=== PATIENT | male | born 1970 | race Caucasian/White ===

== ENCOUNTER 2016-09-03 08:21 | Emergency (ER) | payer MEDICARE, OTHER ==
[2016-09-03] MEDS ORDERED: SODIUM CHLORIDE 0.9% 1,000 ML IV ONE (08:40)
[2016-09-03] MEDS ORDERED: KETOROLAC 30 MG/ML 1 ML VIAL IVP STA (08:40)
--- NOTE | 2016-09-03 08:44 | ED ---
General Adult HPI <Jose De Jesus Mason - Last Filed: 09/03/16 10:20> - General Source: patient, RN notes reviewed Mode of arrival: ambulatory Limitations: no limitations <Beulah Cabrales - Last Filed: 09/03/16 10:41> - General Chief complaint: Extremity Injury, Lower Stated complaint: leg infection Time Seen by Provider: 09/03/16 08:34 - History of Present Illness Initial comments: Patient is a 46-year-old male presents to the emergency room for evaluation of right leg infection. Patient states about a week and half ago he slipped on a ladder and received an abrasion over his right anterior more. Patient states about 4 days ago the area was not healing and began swelling so he went to urgent care clinic. Patient states he was placed on Keflex. Patient states over the past 2 days the redness has spread over his leg. Patient states he has been having increasing pain and noticed purulent drainage from the area 2 days ago. Patient states he's having 7 out of 10 pain. Patient denies fevers or chills. Patient denies nausea or vomiting. Patient denies any numbness or tingling in his toes. Patient denies history of diabetes. Patient states he's been taking Keflex with no relief of symptoms. Patient does state he has a history of abscesses. Patient denies history of MRSA. (Beulah Cabrales) - Related Data Home Medications Medication Instructions Recorded Confirmed Benztropine Mesylate [Cogentin] 1 mg PO BID 09/03/16 09/03/16 Citalopram Hydrobromide [CeleXA] 20 mg PO DAILY 09/03/16 09/03/16 Haloperidol [Haldol] 5 mg PO BID 09/03/16 09/03/16 Lurasidone HCl [Latuda] 120 mg PO DAILY 09/03/16 09/03/16 Methylphenidate HCl [Ritalin] 20 mg PO TID 09/03/16 09/03/16 Prazosin [Minipress] 1 mg PO HS 09/03/16 09/03/16 QUEtiapine [SEROquel] 400 mg PO HS 09/03/16 09/03/16 Tamsulosin HCl [Flomax] 0.4 mg PO HS 09/03/16 09/03/16 buPROPion HCL [Wellbutrin XL] 300 mg PO DAILY 09/03/16 09/03/16 clonazePAM [KlonoPIN] 0.5 mg PO TID PRN 09/03/16 09/03/16 levETIRAcetam [Keppra] 750 mg PO HS 09/03/16 09/03/16 traZODone HCL 150 mg PO HS 09/03/16 09/03/16 Previous Rx's Medication Instructions Recorded Clindamycin [Cleocin] 450 mg PO Q6H 10 Days 09/03/16 Allergies Allergy/AdvReac Type Severity Reaction Status Date / Time oxycodone [From Percocet] Allergy Wheezing Verified 09/03/16 10:32 Review of Systems ROS Other: All systems not noted in ROS Statement are negative. <Jose De Jesus Mason - Last Filed: 09/03/16 10:20> ROS Other: All systems not noted in ROS Statement are negative. <Beulah Cabrales - Last Filed: 09/03/16 10:41> ROS Statement: Those systems with pertinent positive or pertinent negative responses have been documented in the HPI. Past Medical History Past Medical History: No Reported History History of Any Multi-Drug Resistant Organisms: None Reported Past Surgical History: Adenoidectomy, Appendectomy, Bariatric Surgery, Ear Surgery, Tonsillectomy Additional Past Surgical History / Comment(s): shayna en y, ganglion cyst removal x3 Past Psychological History: No Psychological Hx Reported Smoking Status: Never smoker Past Alcohol Use History: None Reported Past Drug Use History: None Reported <Beulah Cabrales - Last Filed: 09/03/16 10:41> General Exam <Jose De Jesus Mason - Last Filed: 09/03/16 10:20> Limitations: no limitations General appearance: alert, in no apparent distress Head exam: Present: atraumatic, normocephalic, normal inspection Eye exam: Present: normal appearance ENT exam: Present: normal exam Neck exam: Present: normal inspection Respiratory exam: Present: normal lung sounds bilaterally. Absent: respiratory distress Cardiovascular Exam: Present: regular rate, normal rhythm, normal heart sounds Right Lower Leg exam: Present: full ROM, tenderness. Absent: normal inspection ( Small ulcerating lesion with purulent drainage with surrounding edema and erythema. Underlying hematoma.) Ankle exam: Present: swelling Foot/Toe exam: Present: swelling Neurovascular tendon exam: Present: no vascular compromise. Absent: pulse deficit (2+ dorsal pedal and posterior tibial pulses), abnormal cap refill ( Capillary refill less than 2 seconds) Back exam: Present: normal inspection Neurological exam: Present: alert, oriented X3, CN II-XII intact Psychiatric exam: Present: normal affect, normal mood Skin exam: Present: warm, dry. Absent: rash <Beulah Cabrales - Last Filed: 09/03/16 10:41> - General Exam Comments Initial Comments: Sitting in exam room, no acute distress. (Beulah Cabrales) Course <Jose De Jesus Mason - Last Filed: 09/03/16 10:20> <Beulah Cabrales - Last Filed: 09/03/16 10:41> Vital Signs 09/03/16 09/03/16 08:24 09:36 Temperature 98.1 F 98.4 F Pulse Rate 81 66 Respiratory 18 15 Rate Blood Pressure 122/80 121/77 O2 Sat by Pulse 98 100 Oximetry - Reevaluation(s) Reevaluation #1: 09/03/16 10:20 I did personally do a [id number] evaluation the patient did examine his leg. He does have edema with localized evidence of cellulitis and hematoma. There is some drainage that is dried no rollover the original wound. No calf tenderness no lymphangitis no proximal lymph nodes tenderness. X-ray show no evidence of foreign body. I did a long discussion with the patient regarding the options for treatment. Patient will require a change in antibiotics he does state that he cannot stay in the hospital due to the recent custody of a 7- year-old child that he has elected to try outpatient therapy. We did discuss this this is a reasonable option at this time patient was cautioned or if he has worsening of symptoms or any other symptoms which we enumerated he should come back for further care. I did stress the need for elevation of his extremity warm compresses and compliance with the medication. (Jose De Jesus Mason) Medical Decision Making - Lab Data Result diagrams: 09/03/16 08:40 09/03/16 08:40 <Jose De Jesus Mason - Last Filed: 09/03/16 10:20> - Lab Data Result diagrams: 09/03/16 08:40 09/03/16 08:40 <Beulah Cabrales - Last Filed: 09/03/16 10:41> - Lab Data Lab Results 09/03/16 09/03/16 09/03/16 Range/Units 08:40 08:40 08:40 WBC 6.5 (3.8-10.6) k/uL RBC 4.34 (4.30-5.90) m/uL Hgb 13.7 (13.0-17.5) gm/dL Hct 38.8 L (39.0-53.0) % MCV 89.4 (80.0-100.0) fL MCH 31.7 (25.0-35.0) pg MCHC 35.4 (31.0-37.0) g/dL RDW 13.1 (11.5-15.5) % Plt Count 364 (150-450) k/uL Neutrophils % 67 % Lymphocytes % 22 % Monocytes % 6 % Eosinophils % 2 % Basophils % 1 % Neutrophils # 4.4 (1.3-7.7) k/uL Lymphocytes # 1.4 (1.0-4.8) k/uL Monocytes # 0.4 (0-1.0) k/uL Eosinophils # 0.1 (0-0.7) k/uL Basophils # 0.1 (0-0.2) k/uL Sodium 140 (137-145) mmol/L Potassium 4.4 (3.5-5.1) mmol/L Chloride 104 (98-107) mmol/L Carbon Dioxide 27 (22-30) mmol/L Anion Gap 9 mmol/L BUN 9 (9-20) mg/dL Creatinine 0.72 (0.66-1.25) mg/dL Est GFR (MDRD) Af Amer >60 (>60 ml/min/1.73 sqM) Est GFR (MDRD) Non-Af >60 (>60 ml/min/1.73 sqM) Glucose 63 L (74-99) mg/dL Plasma Lactic Acid Jordan 1.1 (0.7-2.0) mmol/L Calcium 9.3 (8.4-10.2) mg/dL Total Bilirubin 0.3 (0.2-1.3) mg/dL AST 25 (17-59) U/L ALT 29 (21-72) U/L Alkaline Phosphatase 86 (38-126) U/L Total Protein 6.2 L (6.3-8.2) g/dL Albumin 4.0 (3.5-5.0) g/dL Disposition <Jose De Jesus Mason - Last Filed: 09/03/16 10:20> Time of Disposition: 09:50 <Beulah Cabrales - Last Filed: 09/03/16 10:41> Clinical Impression: Cellulitis of right leg Disposition: HOME SELF-CARE Condition: Stable Instructions: Cellulitis (ED) Additional Instructions: Take antibiotics as directed. Apply warm compresses. Elevate. Please follow up with primary care provider in 1-2 days for reevaluation. If any new symptom arises or symptoms worsen, return to ER as soon as possible. Prescriptions: Clindamycin [Cleocin] 450 mg PO Q6H 10 Days Referrals: None,Stated [Primary Care Provider] - 1-2 days
[2016-09-03 08:58] LABS: Basophils # (A) 0.1 k/uL (0-0.2); Basophils % (A) 1 %; CHCM 34.8; Eosinophils # (A) 0.1 k/uL (0-0.7); Eosinophils % (A) 2 %; HCT 38.8 % (39.0-53.0); HDW 2.66; HGB 13.7 gm/dL (13.0-17.5); Luc # (Auto) 0.12; Luc % (Auto) 2; Lymphocytes # (A) 1.4 k/uL (1.0-4.8); Lymphocytes % (A) 22 %; MCH 31.7 pg (25.0-35.0); MCHC 35.4 g/dL (31.0-37.0); MCV 89.4 fL (80.0-100.0); Mean Platelet Volume 6.8; Monocytes # (A) 0.4 k/uL (0-1.0); Monocytes % (A) 6 %; Neutrophils # (A) 4.4 k/uL (1.3-7.7); Neutrophils % (A) 67 %; RBC 4.34 m/uL (4.30-5.90); RDW 13.1 % (11.5-15.5); WBC 6.5 k/uL (3.8-10.6); WBC (Perox) 6.23
[2016-09-03 09:05] LABS: ALT 29 U/L (21-72); AST 25 U/L (17-59); Alkaline Phosphatase 86 U/L (38-126); Anion Gap 9 mmol/L; Blood Urea Nitrogen 9 mg/dL (9-20); Calcium 9.3 mg/dL (8.4-10.2); Carbon Dioxide 27 mmol/L (22-30); Chloride 104 mmol/L (98-107); Glucose 63 mg/dL (74-99); Non-African American GFR(MDRD) >60 (>60 ml/min/1.73 sqM); Potassium 4.4 mmol/L (3.5-5.1); Sodium 140 mmol/L (137-145); Total Bilirubin 0.3 mg/dL (0.2-1.3); Total Protein 6.2 g/dL (6.3-8.2)
--- NOTE | 2016-09-03 09:11 | XR ---
EXAMINATION TYPE: XR tibia fibula RT DATE OF EXAM: 09/03/2016 CLINICAL HISTORY: Fall injury 2 weeks ago with persistent pain swelling and redness and open wound. TECHNIQUE: Two views of the right leg are obtained. COMPARISON: None. FINDINGS: There is no acute fracture or dislocation seen in the right tibia or fibula. Some medial j oint space loss in right knee is present. Visualized ankle joint is within normal limits. There is mi ld to moderate diffuse subcutaneous edema with slightly more prominent mild to moderate focal swellin g over lateral malleolus. A few scattered phleboliths are seen anteriorly. IMPRESSION: There is no acute fracture or dislocation seen in the right tibia or fibula. Diffuse sub cutaneous edema is noted.
[2016-09-03] MEDS ORDERED: AMPICILLIN-SULBACTAM 3 GM in SODIUM CHLORIDE 0.9% 100 ML IVPB STA (09:13)
[2016-09-03] MEDS ORDERED: IV VANCOMYCIN PER PHARMACY 1 EACH MISC MISCELLANE PRN (09:13)
[2016-09-03] MEDS ORDERED: CLINDAMYCIN 150 MG CAP PO STA (09:48)
[2016-09-03] MEDS ORDERED: VANCOMYCIN 1,750 MG in SODIUM CHLORIDE 0.9% 250 ML IVPB ONE (10:00)
[2016-09-03 10:55] VITALS: BP 124/75; PULSE 71; RESP 16; TEMP 98.6
[2016-09-03] MEDS ORDERED: VANCOMYCIN 1,500 MG in SODIUM CHLORIDE 0.9% 250 ML IVPB SCH (16:00)
== END 2016-09-03 10:50 | disposition home or self-care (01) ==
LOC: EC 08:21
DX: S80.11XA Contusion of right lower leg, initial encounter (principal); L03.115 Cellulitis of right lower limb; Z79.899 Other long term (current) drug therapy; Z88.6 Allergy status to analgesic agent; X58.XXXA Exposure to other specified factors, initial encounter
CPT/HCPCS: 36415; 80053; 83605; 85025; 87040; 87070; 87205; 87077; 87186; 73590; 99283; 96365; 96375; 96361; J1885; J0295

== ENCOUNTER 2016-09-05 09:03 | Inpatient (IN) | payer MEDICARE, OTHER ==
[2016-09-05] MEDS ORDERED: SODIUM CHLORIDE 0.9% 1,000 ML IV ONE (09:44)
--- NOTE | 2016-09-05 09:45 | ED ---
General Adult HPI - General Chief complaint: Extremity Injury, Lower Stated complaint: R Leg Pain Time Seen by Provider: 09/05/16 09:17 Source: patient, RN notes reviewed Mode of arrival: ambulatory Limitations: no limitations - History of Present Illness Initial comments: Patient is a 46-year-old male presents to the emergency room for evaluation of right leg infection. Patient was here 2 days ago for the same issue. Patient was offered admission at that time and wanted to go home. Patient was given a dose of Unasyn IV while he was here and sent home with clindamycin. Patient states that the pain has gotten worse since he's been here. Patient states the swelling has improved though. Patient states the pain is on the lateral portion of his lower leg and his lesion is still draining. Patient states he's been having chills. Patient denies nausea or vomiting. Patient denies chest pain or shortness of breath. Patient denies numbness or tingling in his toes. - Related Data Home Medications Medication Instructions Recorded Confirmed Benztropine Mesylate [Cogentin] 1 mg PO BID 09/03/16 09/05/16 Citalopram Hydrobromide [CeleXA] 20 mg PO DAILY 09/03/16 09/05/16 Haloperidol [Haldol] 5 mg PO BID 09/03/16 09/05/16 Lurasidone HCl [Latuda] 120 mg PO DAILY 09/03/16 09/05/16 Methylphenidate HCl [Ritalin] 20 mg PO TID 09/03/16 09/05/16 Prazosin [Minipress] 1 mg PO HS 09/03/16 09/05/16 QUEtiapine [SEROquel] 400 mg PO HS 09/03/16 09/05/16 Tamsulosin HCl [Flomax] 0.4 mg PO HS 09/03/16 09/05/16 buPROPion HCL [Wellbutrin XL] 300 mg PO DAILY 09/03/16 09/05/16 clonazePAM [KlonoPIN] 0.5 mg PO TID PRN 09/03/16 09/05/16 levETIRAcetam [Keppra] 750 mg PO HS 09/03/16 09/05/16 traZODone HCL 150 mg PO HS 09/03/16 09/05/16 Previous Rx's Medication Instructions Recorded Clindamycin [Cleocin] 450 mg PO Q6H 10 Days 09/03/16 Allergies Allergy/AdvReac Type Severity Reaction Status Date / Time oxycodone [From Percocet] Allergy Rash/Hives Verified 09/05/16 09:30 Review of Systems ROS Statement: Those systems with pertinent positive or pertinent negative responses have been documented in the HPI. ROS Other: All systems not noted in ROS Statement are negative. Past Medical History Past Medical History: No Reported History History of Any Multi-Drug Resistant Organisms: MRSA Date of last positivie culture/infection: 09/03/16 MDRO Source:: LEG Past Surgical History: Adenoidectomy, Appendectomy, Bariatric Surgery, Ear Surgery, Tonsillectomy Additional Past Surgical History / Comment(s): shayna en y, ganglion cyst removal x3 Past Psychological History: No Psychological Hx Reported Smoking Status: Never smoker Past Alcohol Use History: None Reported Past Drug Use History: None Reported - Past Family History Father Family Medical History: Dementia Additional Family Medical History / Comment(s): Father had narcolepsy. He at the age of 84yrs. Mother Family Medical History: Hypertension Additional Family Medical History / Comment(s): Mother is living. She had acoustic neuroma. General Exam - General Exam Comments Initial Comments: Limitations: no limitations General appearance: alert, in no apparent distress Head exam: Present: atraumatic, normocephalic, normal inspection Eye exam: Present: normal appearance ENT exam: Present: normal exam Neck exam: Present: normal inspection Respiratory exam: Present: normal lung sounds bilaterally. Absent: respiratory distress Cardiovascular Exam: Present: regular rate, normal rhythm, normal heart sounds Right Lower Leg exam: Present: full ROM, tenderness. Absent: normal inspection ( Small ulcerating lesion with serous drainage with surrounding edema and erythema.) Neurovascular tendon exam: Present: no vascular compromise. Absent: pulse deficit (2+ dorsal pedal and posterior tibial pulses), abnormal cap refill ( Capillary refill less than 2 seconds) Back exam: Present: normal inspection Neurological exam: Present: alert, oriented X3, CN II-XII intact Psychiatric exam: Present: normal affect, normal mood Skin exam: Present: warm, dry. Absent: rash Limitations: no limitations Course Vital Signs 09/05/16 09/05/16 09:06 12:05 Temperature 98.7 F 98.3 F Pulse Rate 101 H 67 Respiratory 18 16 Rate Blood Pressure 119/76 113/71 O2 Sat by Pulse 97 100 Oximetry Medical Decision Making - Medical Decision Making Patient is a 46-year-old male presents to the emergency room for evaluation of right leg infection. Patient will be admitted with IV antibiotics for failed outpatient therapy. - Lab Data Result diagrams: 09/05/16 10:00 09/05/16 10:00 Lab Results 09/05/16 09/05/16 09/05/16 Range/Units 10:00 10:00 10:00 WBC 7.1 (3.8-10.6) k/uL RBC 4.33 (4.30-5.90) m/uL Hgb 13.5 (13.0-17.5) gm/dL Hct 39.5 (39.0-53.0) % MCV 91.3 (80.0-100.0) fL MCH 31.3 (25.0-35.0) pg MCHC 34.3 (31.0-37.0) g/dL RDW 13.4 (11.5-15.5) % Plt Count 337 (150-450) k/uL Neutrophils % 64 % Lymphocytes % 24 % Monocytes % 6 % Eosinophils % 3 % Basophils % 1 % Neutrophils # 4.6 (1.3-7.7) k/uL Lymphocytes # 1.7 (1.0-4.8) k/uL Monocytes # 0.4 (0-1.0) k/uL Eosinophils # 0.2 (0-0.7) k/uL Basophils # 0.1 (0-0.2) k/uL Sodium 141 (137-145) mmol/L Potassium 4.5 (3.5-5.1) mmol/L Chloride 106 (98-107) mmol/L Carbon Dioxide 26 (22-30) mmol/L Anion Gap 9 mmol/L BUN 12 (9-20) mg/dL Creatinine 0.80 (0.66-1.25) mg/dL Est GFR (MDRD) Af Amer >60 (>60 ml/min/1.73 sqM) Est GFR (MDRD) Non-Af >60 (>60 ml/min/1.73 sqM) Glucose 58 L (74-99) mg/dL Plasma Lactic Acid Jordan 0.8 (0.7-2.0) mmol/L Calcium 9.0 (8.4-10.2) mg/dL Total Bilirubin 0.3 (0.2-1.3) mg/dL AST 24 (17-59) U/L ALT 37 (21-72) U/L Alkaline Phosphatase 77 (38-126) U/L Total Protein 5.9 L (6.3-8.2) g/dL Albumin 3.8 (3.5-5.0) g/dL Urine Color Urine Appearance (Clear) Urine pH (5.0-8.0) Ur Specific [place] (1.001-1.035) Urine Protein (Negative) Urine Glucose (UA) (Negative) Urine Ketones (Negative) Urine Blood (Negative) Urine Nitrite (Negative) Urine Bilirubin (Negative) Urine Urobilinogen (<2.0) mg/dL Ur Leukocyte Esterase (Negative) 09/05/16 Range/Units 10:00 WBC (3.8-10.6) k/uL RBC (4.30-5.90) m/uL Hgb (13.0-17.5) gm/dL Hct (39.0-53.0) % MCV (80.0-100.0) fL MCH (25.0-35.0) pg MCHC (31.0-37.0) g/dL RDW (11.5-15.5) % Plt Count (150-450) k/uL Neutrophils % % Lymphocytes % % Monocytes % % Eosinophils % % Basophils % % Neutrophils # (1.3-7.7) k/uL Lymphocytes # (1.0-4.8) k/uL Monocytes # (0-1.0) k/uL Eosinophils # (0-0.7) k/uL Basophils # (0-0.2) k/uL Sodium (137-145) mmol/L Potassium (3.5-5.1) mmol/L Chloride (98-107) mmol/L Carbon Dioxide (22-30) mmol/L Anion Gap mmol/L BUN (9-20) mg/dL Creatinine (0.66-1.25) mg/dL Est GFR (MDRD) Af Amer (>60 ml/min/1.73 sqM) Est GFR (MDRD) Non-Af (>60 ml/min/1.73 sqM) Glucose (74-99) mg/dL Plasma Lactic Acid Jordan (0.7-2.0) mmol/L Calcium (8.4-10.2) mg/dL Total Bilirubin (0.2-1.3) mg/dL AST (17-59) U/L ALT (21-72) U/L Alkaline Phosphatase (38-126) U/L Total Protein (6.3-8.2) g/dL Albumin (3.5-5.0) g/dL Urine Color Light Yellow Urine Appearance Clear (Clear) Urine pH 5.5 (5.0-8.0) Ur Specific [place] 1.002 (1.001-1.035) Urine Protein Negative (Negative) Urine Glucose (UA) Negative (Negative) Urine Ketones Negative (Negative) Urine Blood Negative (Negative) Urine Nitrite Negative (Negative) Urine Bilirubin Negative (Negative) Urine Urobilinogen <2.0 (<2.0) mg/dL Ur Leukocyte Esterase Negative (Negative) - Radiology Data Radiology results: report reviewed, image reviewed Disposition Clinical Impression: Cellulitis of right leg, Failure of outpatient treatment Disposition: ADMITTED IP TO THIS [facility] Condition: Stable Decision Date: 09/05/16
[2016-09-05 10:14] LABS: Basophils # (A) 0.1 k/uL (0-0.2); Basophils % (A) 1 %; CHCM 34.1; Eosinophils # (A) 0.2 k/uL (0-0.7); Eosinophils % (A) 3 %; HCT 39.5 % (39.0-53.0); HDW 2.65; HGB 13.5 gm/dL (13.0-17.5); Luc # (Auto) 0.12; Luc % (Auto) 2; Lymphocytes # (A) 1.7 k/uL (1.0-4.8); Lymphocytes % (A) 24 %; MCH 31.3 pg (25.0-35.0); MCHC 34.3 g/dL (31.0-37.0); MCV 91.3 fL (80.0-100.0); Mean Platelet Volume 6.8; Monocytes # (A) 0.4 k/uL (0-1.0); Monocytes % (A) 6 %; Neutrophils # (A) 4.6 k/uL (1.3-7.7); Neutrophils % (A) 64 %; RBC 4.33 m/uL (4.30-5.90); RDW 13.4 % (11.5-15.5); WBC 7.1 k/uL (3.8-10.6)
[2016-09-05 10:24] LABS: Appearance,Urine Clear (Clear); Bilirubin,Urine Negative (Negative); Glucose,Urine (UA) Negative (Negative); Ketones,Urine Negative (Negative); Leukocyte Esterase,Urine Negative (Negative); Nitrite,Urine Negative (Negative); PH, Urine 5.5 (5.0-8.0); Protein,Urine Negative (Negative); Specific Gravity,Urine 1.002 (1.001-1.035); UA Billing (MACRO vs. MICRO) CHEM; Urobilinogen,Urine <2.0 mg/dL (<2.0)
[2016-09-05 10:31] LABS: ALT 37 U/L (21-72); AST 24 U/L (17-59); Alkaline Phosphatase 77 U/L (38-126); Anion Gap 9 mmol/L; Blood Urea Nitrogen 12 mg/dL (9-20); Carbon Dioxide 26 mmol/L (22-30); Chloride 106 mmol/L (98-107); Glucose 58 mg/dL (74-99); Non-African American GFR(MDRD) >60 (>60 ml/min/1.73 sqM); Potassium 4.5 mmol/L (3.5-5.1); Sodium 141 mmol/L (137-145); Total Bilirubin 0.3 mg/dL (0.2-1.3); Total Protein 5.9 g/dL (6.3-8.2)
--- NOTE | 2016-09-05 11:03 | XR ---
EXAMINATION TYPE: XR tibia fibula RT DATE OF EXAM: 09/05/2016 CLINICAL HISTORY: Fall injury one week ago with persistent pain. TECHNIQUE: Two views of the right leg are obtained. COMPARISON: Right leg x-ray from 2 days ago. FINDINGS: There is no acute fracture or dislocation seen in the right tibia or fibula. The visualiz ed right knee and ankle joints appear within normal limits. There is mild diffuse subcutaneous edema with improved swelling over lateral malleolus. Occasional soft tissue phlebolith is redemonstrated an teriorly. IMPRESSION: There is no acute fracture or dislocation seen in the right tibia or fibula.
[2016-09-05] MEDS ORDERED: ONDANSETRON 4 MG/2 ML VIAL IVP PRN (11:33)
[2016-09-05] MEDS ORDERED: NALOXONE 0.4 MG/ML 1 ML VIAL IV PRN (11:33)
[2016-09-05] MEDS ORDERED: ACETAMINOPHEN TAB 325 MG TAB PO PRN (11:33)
[2016-09-05] MEDS ORDERED: IV VANCOMYCIN PER PHARMACY 1 EACH MISC MISCELLANE PRN (11:33)
[2016-09-05] MEDS ORDERED: VANCOMYCIN 1,500 MG in SODIUM CHLORIDE 0.9% 250 ML IVPB STA (11:36)
[2016-09-05] MEDS: SODIUM CHLORIDE 0.9% 1,000 ML IV SCH ×2 (11:52→20:49)
[2016-09-05] MEDS: KETOROLAC 30 MG/ML 1 ML VIAL IVP PRN ×2 (13:10→20:51)
[2016-09-05] MEDS: METHYLPHENIDATE HCL 10 MG TAB PO SCH ×2 (15:55→20:42)
[2016-09-05] MEDS: VANCOMYCIN 1,500 MG in SODIUM CHLORIDE 0.9% 250 ML IVPB SCH ×2 (16:22→23:27)
[2016-09-05] MEDS: HALOPERIDOL 5 MG TAB PO SCH (20:46)
[2016-09-05] MEDS: traZODone HCL 50 MG TAB PO SCH (20:46)
[2016-09-05] MEDS: PRAZOSIN 1 MG CAP PO SCH (20:46)
[2016-09-05] MEDS: BENZTROPINE MESYLATE 1 MG TAB PO SCH (20:46)
[2016-09-05] MEDS: QUEtiapine 400 MG TAB PO SCH (20:46)
[2016-09-05] MEDS: TAMSULOSIN 0.4 MG CAP.ER.24H PO SCH (20:46)
[2016-09-06 04:01] LABS: Glucose,Whole Blood 80 mg/dL (75-99)
[2016-09-06] MEDS: KETOROLAC 30 MG/ML 1 ML VIAL IVP PRN ×2 (05:47→21:16)
--- NOTE | 2016-09-06 06:33 | CONS ---
DATE OF SERVICE: 09/05/2016 REASON FOR CONSULTATION: Right leg cellulitis. HISTORY OF PRESENT ILLNESS: The patient is a 46-year-old male who presented to the ER at [facility] with chief complaints of right leg swelling and redness. The patient apparently did have a trauma to it later last week. Patient has been treating it himself with some Neosporin antibiotic cream. He was also seen for the same reason and assessed in the ER where apparently the patient did receive a dose of Unasyn and subsequently ( ) antibiotic. However the patient now presenting back with more swelling and redness to the right leg area also pain, felt pain is dull and throbbing about 5 to 6 out of 10, no radiation. Pain did have slight skin breakdown, but no significant drainage from it. The patient denies any high grade fever, rigors or chills. No abdominal pain. Subsequently evaluated by the ER physician. Did have lower leg x-ray, negative for any fracture or bony changes. The patient with no fever or elevated white count. Cultures obtained on the was MRSA. ID was consulted for further recommendation regarding antibiotic therapy. REVIEW OF SYSTEMS: CONSTITUTIONAL: Positive for ( ). EYES: No complaint. ENT: No complaint. RESPIRATORY: No complaint. CARDIOVASCULAR: No complaint. GENITOURINARY: No complaint. GASTROINTESTINAL: No complaint. MUSCULOSKELETAL: As per HPI. INTEGUMENTARY: As per HPI. PSYCHOLOGICAL: No complaint. ENDOCRINE: No complaint. NEUROLOGICAL: No complaint. PAST MEDICAL HISTORY: Significant for depression, ADHD. PAST SURGICAL HISTORY: Bariatric surgery, appendectomy, tonsillectomy, adenoidectomy. SOCIAL HISTORY: Denies smoking, drinking or drug use. FAMILY HISTORY: No pertinent findings noticed Allergies to OXYCODONE. Medications include the patient is currently on vancomycin, Desyrel, Flomax, Seroquel, Minipress, Zofran, Tylenol. On examination, blood pressure is 113/69 with a pulse of 69, temperature 98.8. He is 96% on room air. General description is a middle age male lying in bed in no distress. No tachypnea or accessory muscles of respiration use. HEENT examination shows no pallor or scleral icterus. Oral mucous membranes are dry. NECK: Trachea central. No thyromegaly. LUNGS: Unlabored breathing. Clear to auscultation anteriorly. HEART: S1 and S2, regular rate and rhythm. ABDOMEN: Soft, no tenderness. No guarding or rigidity. EXTREMITIES: Right leg with wound to the more area with laceration and some surrounding redness, slightly warm to touch. NEUROLOGICALLY: The patient is awake, alert, oriented x3. Mood and affect normal. LABS: Hemoglobin is 13.5, white count is 7.1. BUN 12 and creatinine is 0.80. Electrolytes have been normal. Liver enzyme are normal. Urine is negative. DIAGNOSTIC IMPRESSION AND PLAN: Patient with right lower extremity cellulitis and wound infection, failing outpatient oral antibiotic therapy. Culture done on the is showing MRSA, likely ( ) pathogen. PLAN: 1. Zechariah the area of the redness. 2. We will start the patient on vancomycin, pharmacy to dose, target for 15. 3. Depending on the clinical response and repeat culture, will determine discharge antibiotic. Thank you for this consultation. Will follow this patient along with you. WISAM
[2016-09-06] MEDS ORDERED: VANCOMYCIN TROUGH DUE 1 EACH MISC MISCELLANE ONE (07:00)
[2016-09-06 08:41] LABS: Basophils # (A) 0.1 k/uL (0-0.2); Basophils % (A) 1 %; CH 30.7; CHCM 32.9; Eosinophils # (A) 0.2 k/uL (0-0.7); Eosinophils % (A) 3 %; HCT 41.9 % (39.0-53.0); HDW 2.59; HGB 13.6 gm/dL (13.0-17.5); Luc # (Auto) 0.14; Luc % (Auto) 2; Lymphocytes # (A) 2.2 k/uL (1.0-4.8); Lymphocytes % (A) 31 %; MCH 30.3 pg (25.0-35.0); MCHC 32.3 g/dL (31.0-37.0); MCV 93.7 fL (80.0-100.0); Mean Platelet Volume 6.6; Monocytes # (A) 0.4 k/uL (0-1.0); Monocytes % (A) 5 %; Neutrophils # (A) 4.2 k/uL (1.3-7.7); Neutrophils % (A) 58 %; RBC 4.48 m/uL (4.30-5.90); RDW 13.4 % (11.5-15.5); WBC 7.2 k/uL (3.8-10.6); WBC (Perox) 7.28
[2016-09-06] MEDS: BENZTROPINE MESYLATE 1 MG TAB PO SCH ×2 (08:59→21:15)
[2016-09-06] MEDS: VANCOMYCIN 1,500 MG in SODIUM CHLORIDE 0.9% 250 ML IVPB SCH ×3 (08:59→23:31)
[2016-09-06] MEDS: SODIUM CHLORIDE 0.9% 1,000 ML IV SCH ×2 (08:59→17:51)
[2016-09-06] MEDS: LURASIDONE 40 MG TAB PO SCH (09:00)
[2016-09-06] MEDS: HALOPERIDOL 5 MG TAB PO SCH ×2 (09:00→21:15)
[2016-09-06] MEDS: buPROPion XL 300 MG TAB.ER.24H PO SCH (09:00)
[2016-09-06] MEDS: CITALOPRAM HYDROBROMIDE 20 MG TAB PO SCH (09:01)
[2016-09-06 09:05] LABS: ALT 34 U/L (21-72); AST 23 U/L (17-59); Alkaline Phosphatase 71 U/L (38-126); Anion Gap 8 mmol/L; Blood Urea Nitrogen 11 mg/dL (9-20); Calcium 8.6 mg/dL (8.4-10.2); Carbon Dioxide 28 mmol/L (22-30); Chloride 107 mmol/L (98-107); Glucose 95 mg/dL (74-99); Non-African American GFR(MDRD) >60 (>60 ml/min/1.73 sqM); Potassium 4.3 mmol/L (3.5-5.1); Sodium 143 mmol/L (137-145); Total Bilirubin 0.3 mg/dL (0.2-1.3); Total Protein 5.4 g/dL (6.3-8.2)
[2016-09-06] MEDS: METHYLPHENIDATE HCL 10 MG TAB PO SCH ×3 (09:06→21:16)
[2016-09-06] MEDS: IBUPROFEN 400 MG TAB PO PRN ×2 (09:09→17:52)
--- NOTE | 2016-09-06 09:19 | HP ---
CHIEF COMPLAINT: A 46-year-old white male presents with right leg infection, was here 2 days ago, was sent home from the ER on oral antibiotics, clindamycin since then. The right tibia has been more swollen despite the oral antibiotics at which time increased pressure and swelling of the right leg. He was admitted to the hospital and started on IV vancomycin. Denies any neurologic symptoms of his leg or his toes. HOME MEDICATIONS: 1. Cogentin 1 mg b.i..d 2. Celexa 20 mg daily. 3. Haldol 5 mg b.i.d. 4. Latuda 120 daily. 5. Ritalin 20 mg t.i.d. 6. Minipress 1 mg daily. 7. Seroquel 400 mg q.h.s. 8. Flomax 0.4 mg daily. SOCIAL HISTORY: He says he has 4 kids at home. ( ). Other medications include: 1. Wellbutrin XL 300 daily. 2. Klonopin 0.5 t.i.d 3. Keppra 750 q.h.s. 4. Trazodone 150 mg q.h.s. Allergies are OXYCODONE. Fourteen-point review of systems negative except for mentioned in HPI. PAST MEDICAL HISTORY: MRSA. SURGERIES: Adenoidectomy, appendectomy, bariatric surgery, ear surgery, tonsillectomy, Lamar-en-Y, ganglion cyst removal x3. SOCIAL HISTORY: No smoking. No alcohol. No illicit drugs. FAMILY HISTORY: Father had dementia, narcolepsy. Mother had hypertension, ( ). PHYSICAL EXAM: Vital signs reviewed. Afebrile. CARDIOVASCULAR: S1 and S2. LUNGS: Transmitted upper airway sounds. HEMATOLOGY: Negative Homans. PSYCH: Fair mood affect. NEUROLOGIC: Alert and oriented x3. OPHTHALMOLOGIC: Pupils equal, round and reactive to light and accommodation. NEUROLOGIC: Alert and oriented x3. GI: Soft, nontender. White count 7.1, hemoglobin 13.5. ASSESSMENT: 1. Right leg cellulitis. Rule out compartment syndrome. Start IV vancomycin. 2. History of mental disorders, severe psychiatric history. 3. Anxiety. 4. History of bipolar. 5. Status post ganglion cyst, Lamar-en-Y. Continue with IV antibiotics. Infectious disease and orthopedic consults. [facility]
--- NOTE | 2016-09-06 12:56 | PN ---
DATE OF SERVICE: 09/06/2016 Reason for followup is right leg cellulitis, MRSA. INTERVAL HISTORY: The patient is afebrile. He is currently breathing comfortably. Pain to the right leg is currently controlled. No significant drainage. Patient denies any significant chest pain. No shortness of breath or cough. No abdominal pain or any diarrhea. On examination, blood pressure is 129/81 with a pulse of 64, temperature 97.1. He is 97% on room air. General description is a middle age male lying in bed in no distress. RESPIRATORY SYSTEM: Unlabored breathing. Clear to auscultation anteriorly. HEART: S1 and S2, regular rate and rhythm. ABDOMEN: Soft, no tenderness. Right leg overall swelling and redness is improved. DIAGNOSTIC IMPRESSION: Patient with right lower extremity wound and cellulitis failing outpatient oral antibiotic therapy. Wound culture with MRSA. The patient will continued on vancomycin, pharmacy to dose, local wound care with Aquacel silver. Will evaluate the patient tomorrow. Continue supportive care. [facility]ITAL[facility]
--- NOTE | 2016-09-06 13:16 | P.CNOR ---
History of Present Illness - [facility] Consult date: 09/06/16 Consult reason: other (Right leg cellulitis) History of present illness: This is a 46-year-old male who is seen and evaluated at bedside [facility] today. Patient was admitted to the hospital yesterday after arriving at the ER with complaints of pain and swelling to the right more area of the lower extremity. Patient was at the hospital earlier this week, on 09/03 with regards to wound in the lower right extremity. Patient states that a week and a half ago he scraped his leg while working on a ladder and he had attempted to treat it conservatively in the outpatient setting with antibacterial creams. He had noticed increasing pain, which prompted him to report to the ER the first time. He did receive a shot of antibiotics, and was discharged home on oral clindamycin. Yesterday he noted the pain and swelling have not proven, so he returned back to the hospital. He was admitted under the internal medicine group with infectious disease consult. Due to the increasing pain and swelling in that area, we will consult him with regards to the cellulitis and to rule out a compartment syndrome of the right lower extremity. Patient denies any previous infections involving any part of the body. The cultures that were taken on 09/03/2016 revealed MSRA. Since being admitted to the hospital, his and started on IV vancomycin by infectious disease along with local wound care. Patient denies any previous orthopedic history involving the right lower extremity. Patient denies any significant trauma that happen when he scraped it on the ladder, including a fall. At bedside today, patient states that the pain and swelling has improved since yesterday. He notes no further fever or chills. He denies any symptoms involving the left lower or bilateral upper extremities. Patient denies any knee pain, foot or ankle pain. He denies any pain in the groin. Patient denies any headaches, lightheadedness, chest pain, shortness of breath, abdominal discomfort. Review of Systems Constitutional: Reports as per [facility] Past Medical History Past Medical History: No Reported History Additional Past Medical History / Comment(s): Pt states he has had HTN and CECILY in past but no longer since wt loss with bariatric surgery, arthritis bilateral knees. Last Myocardial Infarction Date:: 2000 or 2001 in [place] History of Any Multi-Drug Resistant Organisms: MRSA Year Discovered:: 09/03/16 MDRO Source:: LEG Past Surgical History: Adenoidectomy, Appendectomy, Bariatric Surgery, Ear Surgery, Tonsillectomy Additional Past Surgical History / Comment(s): shayna en y, ganglion cyst removal x3 Past Anesthesia/Blood Transfusion Reactions: No Reported Reaction Past Psychological History: No Psychological Hx Reported Smoking Status: Never smoker Past Alcohol Use History: None Reported Past Drug Use History: None Reported - Past Family History Father Family Medical History: Dementia Additional Family Medical History / Comment(s): Father had narcolepsy. He at the age of 84yrs. Mother Family Medical History: Hypertension Additional Family Medical History / Comment(s): Mother is living. She had acoustic neuroma. Medications and Allergies Home Medications Medication Instructions Recorded Confirmed Type Benztropine Mesylate [Cogentin] 1 mg PO BID 09/03/16 09/05/16 History Citalopram Hydrobromide [CeleXA] 20 mg PO DAILY 09/03/16 09/05/16 History Haloperidol [Haldol] 5 mg PO BID 09/03/16 09/05/16 History Lurasidone HCl [Latuda] 120 mg PO DAILY 09/03/16 09/05/16 History Methylphenidate HCl [Ritalin] 20 mg PO TID 09/03/16 09/05/16 History Prazosin [Minipress] 1 mg PO HS 09/03/16 09/05/16 History QUEtiapine [SEROquel] 400 mg PO HS 09/03/16 09/05/16 History Tamsulosin HCl [Flomax] 0.4 mg PO HS 09/03/16 09/05/16 History buPROPion HCL [Wellbutrin XL] 300 mg PO DAILY 09/03/16 09/05/16 History clonazePAM [KlonoPIN] 0.5 mg PO TID PRN 09/03/16 09/05/16 History levETIRAcetam [Keppra] 750 mg PO HS 09/03/16 09/05/16 History traZODone HCL 150 mg PO HS 09/03/16 09/05/16 History Allergies Allergy/AdvReac Type Severity Reaction Status Date / Time oxycodone [From Percocet] Allergy Rash/Hives Verified 09/05/16 09:30 Physical Examination Right lower extremity: Small Telfa pad noted over the anterior aspect of the lower more, this was removed to evaluate. There is a 2-3 cm size abrasion was Noted. There is minimal erythema surrounding that area. There is previous marker lines, no erythematous streaking out of those lines. Minimal soft tissue swelling present in the area of erythema. The anterior medial and lateral compartments of the lower right extremity remained soft, the anterior medial lateral compartments of the upper leg are soft. Active extension and flexion at the foot and ankle reproduces no pain, along with passive motion. He is able to extend and flex the knee fully with no discomfort. He has minimal tenderness with palpation along the nerve erythema more on the lateral aspect of the lower extremity. His dorsal pedis pulse is 2+. His sensory exam to light touch throughout that extremity is intact. Plantar flexion, dorsiflexion, EHL, FHL are intact. Logroll maneuver of the right lower extremity reproduces no pain Results - Labs Labs: Abnormal Lab Results - Last 24 Hours (Table) 09/06/16 Range/Units 08:04 Total Protein 5.4 L (6.3-8.2) g/dL Albumin 3.4 L (3.5-5.0) g/dL Microbiology - Last 24 Hours (Table) 09/05/16 10:00 Blood Culture - Preliminary Blood No Growth after 24 hours 09/05/16 12:10 Gram Stain - Preliminary Leg - Right Wound Culture - Preliminary H & H 09/05/16 09/06/16 Range/Units 10:00 08:04 Hgb 13.5 13.6 (13.0-17.5) gm/dL Hct 39.5 41.9 (39.0-53.0) % Result Diagrams: 09/06/16 08:04 09/06/16 08:04 Assessment and Plan Plan: Imagin views of the tib-fib of the right lower extremity were done. Images demonstrated no acute fracture or dislocation. Assessment: 1. Right lower extremity cellulitis 2. No evidence of compartment syndrome right lower extremity 3. Other medical comorbidities Plan: 1. I was able to discuss the case, including physical exam findings and imaging studies with Dr. Lopez. No evidence of a acute compartment syndrome at this time. Continue with infectious disease recommendations for treatment of cellulitis 2. Weight-bear as tolerated 3. Pain control per medical recommendations 4. GI and DVT prophylaxis per medical recommendations 5. Wound care per infectious disease recommendations 6. We will be available for any further questions regarding this patient Time with Patient: Less than 30
[2016-09-06] MEDS: clonazePAM 0.5 MG TAB PO PRN (18:36)
[2016-09-06] MEDS: TAMSULOSIN 0.4 MG CAP.ER.24H PO SCH (21:15)
[2016-09-06] MEDS: traZODone HCL 50 MG TAB PO SCH (21:15)
[2016-09-06] MEDS: PRAZOSIN 1 MG CAP PO SCH (21:15)
[2016-09-06] MEDS: QUEtiapine 400 MG TAB PO SCH (21:15)
[2016-09-07] MEDS: SODIUM CHLORIDE 0.9% 1,000 ML IV SCH ×2 (04:18→09:08)
[2016-09-07 07:43] VITALS: RESP 18
[2016-09-07] MEDS: VANCOMYCIN 1,500 MG in SODIUM CHLORIDE 0.9% 250 ML IVPB SCH ×2 (08:05→15:54)
[2016-09-07 08:46] LABS: Anion Gap 5 mmol/L; Blood Urea Nitrogen 14 mg/dL (9-20); Calcium 8.9 mg/dL (8.4-10.2); Carbon Dioxide 31 mmol/L (22-30); Chloride 106 mmol/L (98-107); Glucose 72 mg/dL (74-99); Non-African American GFR(MDRD) >60 (>60 ml/min/1.73 sqM); Potassium 4.4 mmol/L (3.5-5.1); Sodium 142 mmol/L (137-145)
[2016-09-07] MEDS: clonazePAM 0.5 MG TAB PO PRN ×2 (09:08→15:44)
[2016-09-07] MEDS: METHYLPHENIDATE HCL 10 MG TAB PO SCH ×3 (09:08→21:30)
[2016-09-07] MEDS: KETOROLAC 30 MG/ML 1 ML VIAL IVP PRN ×3 (09:08→22:56)
[2016-09-07] MEDS: BENZTROPINE MESYLATE 1 MG TAB PO SCH ×2 (09:10→21:31)
[2016-09-07] MEDS: LURASIDONE 40 MG TAB PO SCH (09:10)
[2016-09-07] MEDS: HALOPERIDOL 5 MG TAB PO SCH ×2 (09:11→21:31)
[2016-09-07] MEDS: CITALOPRAM HYDROBROMIDE 20 MG TAB PO SCH (09:11)
[2016-09-07] MEDS: buPROPion XL 300 MG TAB.ER.24H PO SCH (09:11)
--- NOTE | 2016-09-07 12:33 | PN ---
DATE OF SERVICE: 09/06/16 SUBJECTIVE: 46 year white male admitted with right leg cellulitis and MRSA. Seen by infectious disease. He continues to be on IV Vancomycin, failing outpatient oral antibiotics. Vital signs stable. Afebrile. Cardiovascular, S1 , S2. Lungs transmitted upper airway sounds. Hematology negative Homans. PLAN: Continue with current treatment. Orthopedic consultation has been elicited. Compartment syndrome was ruled out per orthopedic consultation. Continue with IV Vancomycin. MTDD
--- NOTE | 2016-09-07 16:28 | PN ---
DATE OF SERVICE: 09/07/2016 REASON FOR FOLLOWUP: Right leg wound and cellulitis. INTERVAL HISTORY: The patient is afebrile. He is feeling better, breathing comfortably. Pain and swelling and redness of the right leg have improved. There is no drainage. Denies any chest pain, shortness of breath or cough. No abdominal pain or any diarrhea. On examination, blood pressure is 116/80 with a pulse of 58, temperature 97.5. He is 98% on room air. General description is a middle-aged male lying in bed without distress. RESPIRATORY SYSTEM: Unlabored breathing. Clear to auscultation anteriorly. HEART: S1, S2. Regular rate and rhythm. ABDOMEN: Soft. No tenderness. Right leg overall swelling and redness have improved. No drainage. LABS: BUN of 14 with a creatinine 0.79. DIAGNOSTIC IMPRESSION AND PLAN: Patient with right lower extremity wound and cellulitis, outpatient ( ) with an MRSA. Overall improvement with vancomycin. Plan to finish therapy with p.o. Bactrim DS one twice a day for another 10 days. Prescription was sent to the pharmacy with outpatient followup. WISAM
[2016-09-07] MEDS: QUEtiapine 400 MG TAB PO SCH (21:30)
[2016-09-07] MEDS: traZODone HCL 50 MG TAB PO SCH (21:30)
[2016-09-07] MEDS: TAMSULOSIN 0.4 MG CAP.ER.24H PO SCH (21:30)
[2016-09-07] MEDS: PRAZOSIN 1 MG CAP PO SCH (21:30)
[2016-09-08] MEDS: VANCOMYCIN 1,500 MG in SODIUM CHLORIDE 0.9% 250 ML IVPB SCH ×2 (00:05→07:39)
[2016-09-08] MEDS: SODIUM CHLORIDE 0.9% 1,000 ML IV SCH ×2 (00:07→10:44)
[2016-09-08 07:35] VITALS: BP 120/73; PULSE 62; TEMP 97.3
[2016-09-08] MEDS: buPROPion XL 300 MG TAB.ER.24H PO SCH (07:39)
[2016-09-08] MEDS: LURASIDONE 40 MG TAB PO SCH (07:39)
[2016-09-08] MEDS: HALOPERIDOL 5 MG TAB PO SCH (07:39)
[2016-09-08] MEDS: CITALOPRAM HYDROBROMIDE 20 MG TAB PO SCH (07:39)
[2016-09-08] MEDS: BENZTROPINE MESYLATE 1 MG TAB PO SCH (07:39)
--- NOTE | 2016-09-08 07:40 | PN ---
SUBJECTIVE: A 46-year-old white male admitted to the hospital with severe cellulitis of the right tibia. Remains on IV vancomycin. Patient will be sent home on Bactrim double strength 1 b.i.d. for another 10 days. Possible discharge home in the next 24 to 48 hours. CARDIOVASCULAR: S1 and S2. LUNGS: Transmitted upper airway sounds. GI: Soft. INTEGUMENT: Right mid tibia redness, swelling and is greatly improved, most mild post swelling inflammation. Continue on Bactrim double strength b.i.d. for 10 days. Follow up in the next 24 to 48 hours. RJD
[2016-09-08] MEDS: METHYLPHENIDATE HCL 10 MG TAB PO SCH (07:44)
[2016-09-08 08:06] LABS: Anion Gap 5 mmol/L; Blood Urea Nitrogen 13 mg/dL (9-20); Calcium 8.5 mg/dL (8.4-10.2); Carbon Dioxide 32 mmol/L (22-30); Chloride 105 mmol/L (98-107); Glucose 80 mg/dL (74-99); Non-African American GFR(MDRD) >60 (>60 ml/min/1.73 sqM); Potassium 4.3 mmol/L (3.5-5.1); Sodium 142 mmol/L (137-145)
[2016-09-08] MEDS: KETOROLAC 30 MG/ML 1 ML VIAL IVP PRN (09:38)
--- NOTE | 2016-09-08 17:07 | PN ---
DATE OF SERVICE: 09/08/2016 REASON FOR FOLLOWUP: Right leg wound, MRSA infection. INTERVAL HISTORY: The patient is afebrile. He has been breathing comfortably. Denies significant chest pain or shortness of breath or cough. No abdominal pain or any worsening pain in the right leg area. On examination, blood pressure is 120/73 with a pulse of 62, temperature 97.3. He is 98% on room air. General description is a middle-aged male lying in bed in no distress. RESPIRATORY SYSTEM: Unlabored breathing. Clear to auscultation anteriorly. HEART: S1, S2. Regular rate and rhythm. ABDOMEN: Soft. No tenderness. RIGHT LEG: Overall swelling and redness have improved. LABS: BUN of 13 with a creatinine of 0.80. DIAGNOSTIC IMPRESSION AND PLAN: Patient with right leg wound infection with secondary cellulitis. Culture positive for MRSA. Plan to finish therapy with p.o. Bactrim DS one twice a day for another 10 days. Prescription was sent to his pharmacy. Continue supportive care. WISAM
--- NOTE | 2016-09-10 12:22 | DS ---
DISCHARGE DIAGNOSES: 1. Cellulitis of the right leg, failure of outpatient treatment. 2. Mild abscess, right leg. 3. Bipolar. 4. Hypertension. 5. Benign prostatic hypertrophy. HOME MEDICATIONS: 1. Bactrim Double Strength 1 q.12 hours for 10 days. 2. Cogentin 1 mg b.i.d. 3. Seroquel 400 daily. 4. Minipress 1 mg daily. 5. Keppra 750 at bedtime. 6. Ritalin 20 t.i.d. 7. Latuda 120 daily. 8. Haldol 5 mg b.i.d. 9. Klonopin 0.5 t.i.d. 10. Flomax 0.4 mg daily. 11. Celexa 20 mg daily. 12. Wellbutrin XL 300 daily. 13. Trazodone 150 daily. CONDITION: Stable. Follow up as an outpatient in one week. HOSPITAL COURSE OF EVENTS: This is a 46-year-old white male who was admitted for IV antibiotics with vancomycin for 2 to 3 days ( ) outpatient treatment with oral antibiotics. Compartment syndrome was ruled out. He remained on IV vancomycin for 2 [address] Garcia's infectious disease recommendations. He clinically improved, at which time he was switched to oral Bactrim, to follow up as an outpatient course. WISAM
== END 2016-09-08 13:55 | disposition home or self-care (01) | DRG 603 ==
LOC: EC 09:03 → 4MS4W 11:52
PROVIDERS: ADMIT Family Medicine; ATTEND Family Medicine
DX: L03.115 Cellulitis of right lower limb (principal); F32.9 Major depressive disorder, single episode, unspecified; B95.62 Methicillin resistant Staphylococcus aureus infection as the cause of diseases classified elsewhere; F41.9 Anxiety disorder, unspecified; F90.9 Attention-deficit hyperactivity disorder, unspecified type; I25.2 Old myocardial infarction; N40.0 Benign prostatic hyperplasia without lower urinary tract symptoms; L02.415 Cutaneous abscess of right lower limb; M17.0 Bilateral primary osteoarthritis of knee; Z98.84 Bariatric surgery status; Z79.899 Other long term (current) drug therapy; Z88.5 Allergy status to narcotic agent; Z82.49 Family history of ischemic heart disease and other diseases of the circulatory system
CPT/HCPCS: 36415; 80048; 80053; 80202; 81003; 83605; 85025; 87040; 87070; 87077; 87186; 87205; 96361; 96365; 96375; 99283

== ENCOUNTER 2021-07-04 17:29 | Emergency (ER) | payer MEDICARE, OTHER ==
[2021-07-04 18:36] VITALS: BP 116/77; PULSE 75; RESP 16; TEMP 98.1
[2021-07-04] MEDS ORDERED: DOXYCYCLINE 100 MG CAP PO STA (19:19)
--- NOTE | 2021-07-04 19:23 | ED ---
Skin/Abscess/FB HPI - General Chief complaint: Skin/Abscess/Foreign Body Stated complaint: Rash-Arm Time Seen by Provider: 07/04/21 19:10 Source: patient, RN notes reviewed Mode of arrival: ambulatory Limitations: no limitations - History of Present Illness Initial comments: This is a pleasant 51-year-old male who presents with a rash to his left arm for last 2 days. Patient states he donated plasma 3 days ago. However the vena puncture was not in this site. He is pointing to the antecubital space of the spinal puncture. This rash has developed on the medial aspect of the proximal forearm. There is no erythema proximal to the elbow. No distal paresthesias. No significant pain. No fever or chills. No headache, no fever or chills, no changes in vision or hearing, no sore throat or difficulty with speech, no neck pain, no chest pain or shortness of breath, no abdominal pain, no nausea or vomiting, no changes in urination or bowel movements, no numbness or tingling, no extremity pain, no skin rashes or lesions. - Related Data Home Medications Medication Instructions Recorded Confirmed Benztropine Mesylate [Cogentin] 1 mg PO BID 09/03/16 09/05/16 Citalopram Hydrobromide [CeleXA] 20 mg PO DAILY 09/03/16 09/05/16 Lurasidone HCl [Latuda] 120 mg PO DAILY 09/03/16 09/05/16 Methylphenidate HCl [Ritalin] 20 mg PO TID 09/03/16 09/05/16 Prazosin [Minipress] 1 mg PO HS 09/03/16 09/05/16 QUEtiapine [SEROquel] 400 mg PO HS 09/03/16 09/05/16 Tamsulosin HCl [Flomax] 0.4 mg PO HS 09/03/16 09/05/16 buPROPion HCL [Wellbutrin XL] 300 mg PO DAILY 09/03/16 09/05/16 clonazePAM [KlonoPIN] 0.5 mg PO TID PRN 09/03/16 09/05/16 haloperidoL [Haldol] 5 mg PO BID 09/03/16 09/05/16 levETIRAcetam [Keppra] 750 mg PO HS 09/03/16 09/05/16 traZODone HCL 150 mg PO HS 09/03/16 09/05/16 Previous Rx's Medication Instructions Recorded Sulfamethox-Tmp 800-160Mg [Bactrim 1 tab PO Q12HR #20 tab 09/07/16 DS 800-160 mg] Doxycycline [Vibramycin] 100 mg PO BID 1 Days #20 each 07/04/21 Allergies Allergy/AdvReac Type Severity Reaction Status Date / Time oxycodone [From Percocet] Allergy Rash/Hives Verified 07/04/21 18:36 Review of Systems ROS Statement: Those systems with pertinent positive or pertinent negative responses have been documented in the HPI. ROS Other: All systems not noted in ROS Statement are negative. Past Medical History Past Medical History: Hypertension Additional Past Medical History / Comment(s): Pt states he has had HTN and CECILY in past but no longer since wt loss with bariatric surgery, arthritis bilateral knees. Last Myocardial Infarction Date:: 2000 or 2001 in [place] History of Any Multi-Drug Resistant Organisms: MRSA Date of last positivie culture/infection: 09/05/16 MDRO Source:: LEG Past Surgical History: Adenoidectomy, Appendectomy, Bariatric Surgery, Ear Surgery, Tonsillectomy Additional Past Surgical History / Comment(s): shayna en y, ganglion cyst removal x3 Past Anesthesia/Blood Transfusion Reactions: No Reported Reaction Past Psychological History: No Psychological Hx Reported Smoking Status: Never smoker Past Alcohol Use History: None Reported Past Drug Use History: None Reported - Past Family History Father Family Medical History: Dementia Additional Family Medical History / Comment(s): Father had narcolepsy. He at the age of 84yrs. Mother Family Medical History: Hypertension Additional Family Medical History / Comment(s): Mother is living. She had acoustic neuroma. General Exam - General Exam Comments Initial Comments: Patient does not appear to be ill or toxic. Vital signs stable, patient afebrile. Limitations: no limitations General appearance: alert, in no apparent distress Head exam: Present: atraumatic, normocephalic, normal inspection Eye exam: Present: normal appearance, PERRL, EOMI. Absent: scleral icterus, conjunctival injection, periorbital swelling ENT exam: Present: normal exam, mucous membranes moist Neck exam: Present: normal inspection, full ROM. Absent: tenderness, meningismus, lymphadenopathy Respiratory exam: Present: normal lung sounds bilaterally, chest wall tenderness. Absent: respiratory distress, wheezes, rales, rhonchi, stridor, accessory muscle use Cardiovascular Exam: Present: regular rate, normal rhythm, normal heart sounds. Absent: systolic murmur, diastolic murmur, rubs, gallop, clicks GI/Abdominal exam: Present: soft, normal bowel sounds. Absent: distended, tenderness, guarding, rebound, rigid Extremities exam: Present: full ROM, normal capillary refill. Absent: normal inspection (Patient has a 4 cm diameter erythematous area to the medial aspect of the left proximal forearm. No vesicles. No lymphangitis. No palpable cord. No pustules. There is a central raised area consistent with a wheal. Possible insect bite.), tenderness, pedal edema, joint swelling, calf tenderness Back exam: Present: normal inspection Neurological exam: Present: alert, oriented X3, CN II-XII intact Psychiatric exam: Present: normal affect, normal mood Skin exam: Present: warm, dry, intact, normal color, erythema, other (No edema). Absent: rash, cyanosis, diaphoretic, urticaria, vesicles, petechiae, pallor Course Vital Signs 07/04/21 18:34 Temperature 98.1 F Pulse Rate 75 Respiratory 16 Rate Blood Pressure 116/77 O2 Sat by Pulse 99 Oximetry Medical Decision Making - Medical Decision Making Patient answers symptomology consistent with a small area of cellulitis. Possibly insect bite as there is evidence of a small wheal centrally. No foreign body. Not consistent with erythema migrans. No lymphangitis. No palpable cord. Consistent with venous superficial thrombophlebitis or DVT. We'll treat the patient empirically with antibiotics. We'll have him apply warm compresses, elevate, recheck in 2 days. Patient voiced understanding. Patient was given follow-up information for primary care doctor. He was told to return here if he has any issues. Patient was told to return to the ER for any signs or symptoms worsen. Told to return immediately if any other problems arise. All questions answered. Treatment plan discussed. Patient in agreement Every effort has been made to ensure accuracy of this dictation. However, due to the limitations of electronic medical records and dictation devices, errors in charting still occur. Doxycycline 100 mg twice a day. Group Director Experience is Dr. Harp Disposition Clinical Impression: Cellulitis of left forearm Disposition: HOME SELF-CARE Condition: Good Instructions (If sedation given, give patient instructions): Cellulitis (ED) Additional Instructions: Follow-up with your regular physician as directed. Return to the ER immediately if any symptoms worsen, new symptoms arise, or any other problems develop. Take antibiotics as directed. Apply warm compresses for 10-15 minutes at a time 4 times a day Prescriptions: Doxycycline [Vibramycin] 100 mg PO BID 1 Days #20 each Is patient prescribed a controlled substance at d/c from ED?: No Referrals: Sujit Elias [STAFF PHYSICIAN] - 07/06/21 Time of Disposition: 19:22
== END 2021-07-04 19:40 | disposition home or self-care (01) ==
LOC: EC 17:29
DX: L03.114 Cellulitis of left upper limb (principal); I10 Essential (primary) hypertension; Z88.5 Allergy status to narcotic agent

== ENCOUNTER 2021-08-23 13:18 | Inpatient (IN) | payer MEDICARE, MEDICAID ==
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
[2021-08-23] MEDS ORDERED: LORazepam 1 MG TAB PO STA (15:52)
[2021-08-23 19:13] LABS: Amphetamine Screen,Urine Not Detected (NotDetected); Barbiturate Screen,Urine Not Detected (NotDetected); Benzodiazepines Screen,Urine Detected (NotDetected); Cocaine Screen,Urine Not Detected (NotDetected); Methadone Screen, Urine Not Detected (NotDetected); Opiate Screen,Urine Not Detected (NotDetected); Oxycodone Screen, Urine Not Detected (NotDetected); Phencyclidine Screen,Urine Not Detected (NotDetected); Tricyclic Antidepressant,Urine Not Detected (NotDetected); Urn Cannabinoid Scrn Not Detected (NotDetected)
[2021-08-23] MEDS ORDERED: ACETAMINOPHEN TAB 325 MG TAB PO PRN (22:24)
[2021-08-23] MEDS ORDERED: LORazepam 1 MG TAB PO PRN (22:24)
[2021-08-23] MEDS ORDERED: MAGNESIUM HYDROXIDE 2,400 MG/10 ML CUP PO PRN (22:24)
[2021-08-23] MEDS ORDERED: MAG HYDROX/AL HYDROX/SIMETH 30 ML CUP PO PRN (22:24)
[2021-08-23] MEDS ORDERED: LORazepam 2 MG/ML INJ IM PRN (22:28)
[2021-08-23] MEDS ORDERED: traZODone HCL 50 MG TAB PO PRN (22:28)
[2021-08-24 00:08] LABS: Appearance,Urine Clear (Clear); Bilirubin,Urine Negative (Negative); Blood,Urine Negative (Negative); Color,Urine Yellow; Glucose,Urine (UA) Negative (Negative); Ketones,Urine Negative (Negative); Leukocyte Esterase,Urine Negative (Negative); Nitrite,Urine Negative (Negative); Protein,Urine Trace (Negative); Specific Gravity,Urine 1.021 (1.001-1.035)
--- NOTE | 2021-08-24 02:12 | P.PN ---
Progress Note - Text Progress Note Date: 08/24/21 Notified of the new consult at 2:05 AM on 08/24. Notified that the patient is sedated and inappropriate for evaluation.
[2021-08-24 07:48] LABS: Basophils # (A) 0.1 k/uL (0-0.2); Basophils % (A) 1 %; Eosinophils # (A) 0.1 k/uL (0-0.7); Eosinophils % (A) 2 %; HCT 41.1 % (39.0-53.0); HGB 12.9 gm/dL (13.0-17.5); Hypochromasia Slight; Lymphocytes % (A) 30 %; MCH 26.3 pg (25.0-35.0); MCHC 31.3 g/dL (31.0-37.0); MCV 84.1 fL (80.0-100.0); Mean Platelet Volume 6.9; Monocytes # (A) 0.5 k/uL (0-1.0); Monocytes % (A) 7 %; Neutrophils # (A) 3.8 k/uL (1.3-7.7); Neutrophils % (A) 58 %; Platelet Count 333 k/uL (150-450); RBC 4.88 m/uL (4.30-5.90); RDW 14.4 % (11.5-15.5); WBC 6.5 k/uL (3.8-10.6)
[2021-08-24 07:56] LABS: Glucose,Whole Blood 96 mg/dL (70-110)
[2021-08-24 08:07] LABS: ALT 20 U/L (4-49); AST 27 U/L (17-59); African American GFR (CKD) >90 (>60 ml/min/1.73 sqM); Albumin 4.2 g/dL (3.5-5.0); Alkaline Phosphatase 75 U/L (38-126); Anion Gap 7 mmol/L; Blood Urea Nitrogen 10 mg/dL (9-20); Calcium 9.4 mg/dL (8.4-10.2); Carbon Dioxide 30 mmol/L (22-30); Chloride 103 mmol/L (98-107); Glucose 104 mg/dL (74-99); Non-African American GFR(CKD) 90 (>60 ml/min/1.73 sqM); Potassium 4.4 mmol/L (3.5-5.1); Sodium 140 mmol/L (137-145); Total Bilirubin 1.1 mg/dL (0.2-1.3); Total Protein 6.4 g/dL (6.3-8.2)
[2021-08-24 11:40] LABS: Chol/HDL Ratio 3.11 Ratio; LDL Cholesterol,Calculated 94.1 mg/dL (0.0-131.0)
[2021-08-24 12:50] LABS: Glucose,Whole Blood 97 mg/dL (70-110)
[2021-08-24] MEDS: ARIPiprazole 5 MG TAB PO SCH (15:22)
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
[2021-08-24 18:11] LABS: Glucose,Whole Blood 78 mg/dL (70-110)
[2021-08-24] MEDS: traZODone HCL 50 MG TAB PO SCH (21:13)
--- NOTE | 2021-08-25 02:20 | P.CONS ---
History of Present Illness - Reason for Consult Consult date: 08/25/21 - History of Present Illness Patient is a 51-year-old male with a PMH of hypertension, not currently on any medications and presents to the emergency room with complaints of anxiety and depression. The patient was admitted to the mental health unit where he was seen and evaluated. The patient reports that he has been under a lot of stress from his work, which has been very arduous due to long hours. He reports feelin g burnt out and having thoughts of harming himself. Denies any physical complaints at the time of interview. Denies experiencing chest discomfort or shortness breath, fever, chills, cough, nausea, vomiting, abdominal pain, diarrhea. Laboratory evaluation was reviewed and was unremarkable. Review of systems: Pertinent positives and negatives as discussed in HPI, a complete review of systems was performed and all other systems are negative. Physical examination: General: non toxic, no distress, appears at stated age, normal weight Derm: no unusual rashes/lesions no unusual ecchymoses, warm, dry Head: atraumatic, normocephalic, symmetric Eyes: EOMI, no lid lag, anicteric sclera, pupils equal round reactive to light ENT: Nose and ears atraumatic, no thrush, no pharyngeal erythema Neck: No thyromegaly, no cervical lymphadenopathy, trachea midline, supple Mouth: no lip lesion, mucus membranes moist Cardiovascular: S1S2 reg, no murmur, positive posterior tibial pulse bilateral, no edema, capillary refill less than 2 seconds Lungs: CTA bilateral, no rhonchi, no rales , no accessory muscle use Abdominal: soft, nontender to palpation, no guarding, no appreciable organomegaly, normal bowel sounds Ext: no gross muscle atrophy, muscle strength 5 out of 5 in all 4 extremities grossly, no contractures, Neuro: CN II-XI grossly intact, light touch intact all 4 extremities, finger to nose within normal limits, Psych: Alert, oriented, appropriate affect Assessment/plan Anxiety and depression -As per psychiatry Thank you for allowing us to participate in the care of this patient. We will follow peripherally. Do not hesitate to contact us with questions. Someone can be reached from the [facility] hospitalist group at all hours of the day at [phone]. Past Medical History Past Medical History: Hypertension Additional Past Medical History / Comment(s): Pt states he has had HTN and CECILY in past but no longer since wt loss with bariatric surgery, arthritis bilateral knees. Last Myocardial Infarction Date:: 2000 or 2001 in [place] History of Any Multi-Drug Resistant Organisms: MRSA Year Discovered:: 09/05/16 MDRO Source:: LEG Past Surgical History: Adenoidectomy, Appendectomy, Bariatric Surgery, Ear Surgery, Tonsillectomy Additional Past Surgical History / Comment(s): shayna en y, ganglion cyst removal x3 Past Anesthesia/Blood Transfusion Reactions: No Reported Reaction Past Psychological History: Depression, Schizoaffective Disorder Additional Psychological History / Comment(s): He is independent. He states his medications for his schizoaffective disorder work very well for him. Smoking Status: Never smoker Past Alcohol Use History: None Reported Past Drug Use History: None Reported - Past Family History Father Family Medical History: Dementia Additional Family Medical History / Comment(s): Father had narcolepsy. He at the age of 84yrs. Mother Family Medical History: Hypertension Additional Family Medical History / Comment(s): Mother is living. She had acoustic neuroma. Medications and Allergies Home Medications Medication Instructions Recorded Confirmed Type No Known Home Medications 08/23/21 08/24/21 History Allergies Allergy/AdvReac Type Severity Reaction Status Date / Time oxycodone [From Percocet] Allergy Rash/Hives Verified 08/24/21 01:45 Results CBC & Chem 7: 08/24/21 07:06 08/24/21 07:06 Labs: Abnormal Lab Results - Last 24 Hours (Table) 08/24/21 08/24/21 Range/Units 07:06 07:06 Hgb 12.9 L (13.0-17.5) gm/dL Glucose 104 H (74-99) mg/dL
[2021-08-25] MEDS: ARIPiprazole 5 MG TAB PO SCH (08:42)
[2021-08-25] MEDS ORDERED: PROPRANOLOL 20 MG TAB PO PRN (11:02)
--- NOTE | 2021-08-25 11:07 | P.PN ---
Progress Note - Text Progress Note Date: 08/25/21 Interval History: Patient was seen lying in his bed this morning and was directable and agreeable to speak with typewriter operator automatic in the office. Patient appears to be more directable today and had a soft tone of voice. He states that he was doing better yesterday and got a "good night's sleep" sleeping through the night. He states that he ate breakfast this morning Taking the Abilify he became more restless and feeling "like my nerves are crawling out of my skin". He was agreeable to try Inderal today as needed for restlessness. He states that he is going to some groups. He has a fair appetite. He claims that his mood has been gradually improving and is denying any psychotic symptoms at this time. At this time patient denies any suicidal or homical ideations, intent or plan. Patient denies any auditory, visual hallucinations and denies any paranoia or delusions. Patient denies any side effects from the medications and has been compliant with meds. Mental Status Exam: General Appearance: Patient appears to be stated age is alert, directable, and attempts to cooperate. Patient appears to have fair hygiene and grooming. Behavior: Patient is seated without any agitated behavior. Speech: Patient's speech is fluent and nonpressured. soft tone Mood/Affect: Patient reports their mood is a bit depressed, affect is congruent and constricted. Suicidality/Homicidality: Patient denies having any homicidal ideation intent or plan. Denies any current suicidal ideations intent or plan Perceptions: Patient denies any visual hallucinations and denies any auditory hallucinations Though content/process: There is no evidence of any delusional thought content and thought process is linear and goal-directed. Memory and concentration: AOX3, grossly intact for the purposes of this session Judgment and insight: fair IMPRESSIONS: Schizoaffective disorder, depressive type Plan: -Patient continues to meet criteria for inpatient psychiatric admission for symptom stabilization and safety. Patient has signed adult voluntary form and medication consent and was placed in patient's chart. -Medications: Continue with Abilify 5 mg daily for mood/psychosis, trazodone 50 mg daily at bedtime for insomnia/mood. Added propranolol 20 mg 3 times a day when necessary for akathisia. -When necessary Ativan and Haldol for agitation/aggression. -NRT - nicotine patch -SW on board for discharge planning. Encouraged the patient to participate in milieu. Likely discharge tomorrow if patient is ready
[2021-08-25] MEDS: traZODone HCL 50 MG TAB PO SCH (20:34)
[2021-08-26 05:43] VITALS: BP 102/68; PULSE 96; RESP 18; TEMP 97.9
[2021-08-26] MEDS: ARIPiprazole 5 MG TAB PO SCH (08:24)
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
== END 2021-08-26 11:15 | disposition home or self-care (01) | DRG 885 ==
LOC: EC 13:18 → 3MHU 22:21
PROVIDERS: ADMIT Psychiatry & Neurology Psychiatry; ATTEND Psychiatry & Neurology Psychiatry
DX: F25.1 Schizoaffective disorder, depressive type (principal); R45.851 Suicidal ideations; Z88.5 Allergy status to narcotic agent; M17.0 Bilateral primary osteoarthritis of knee; Z20.822 Contact with and (suspected) exposure to COVID-19; G47.33 Obstructive sleep apnea (adult) (pediatric); F41.9 Anxiety disorder, unspecified; G47.00 Insomnia, unspecified; I10 Essential (primary) hypertension; I25.2 Old myocardial infarction; Z79.899 Other long term (current) drug therapy; Z81.8 Family history of other mental and behavioral disorders; Z82.49 Family history of ischemic heart disease and other diseases of the circulatory system; Z86.14 Personal history of Methicillin resistant Staphylococcus aureus infection; Z98.84 Bariatric surgery status
CPT/HCPCS: 80053; 80061; 80306; 81003; 82075; 83036; 84443; 85025; 87635; 99285

== ENCOUNTER → 2022-03-23 | Outpatient (CLI) | payer MEDICARE, OTHER ==
[2022-03-23 17:56] VITALS: BP 130/84; PULSE 73; RESP 13; TEMP 98.5; BMI 63.9
--- NOTE | 2022-03-23 18:20 | P.HPBAR ---
Bariatric H&P - History & Physicial H&P Date: 03/23/22 History & Physicial: Visit/CC: follow up Patient initial contact: Initial weight: Initial weight in pounds: Height: 5 ft 10 in Initial BMI: Last weight: Current weight: 202.1 kg Current weight in pounds: 445.55 Current BMI: 63.9 Ruby body weight (based on NIH guidelines): 75.296 kg Excess body weight loss: The patient is a 51 year-old M who presents for Bariatric Assessment. Has Vitamin deficiency and had weight loss surgery. Needs labs. He had gastric bypass in 2011. Highest weight 350 pounds. Recommend. No dysphagia. Had diarrhea. Needs EGD and colon. Past Medical History Past Medical History: Hypertension Additional Past Medical History / Comment(s): Pt states he has had HTN and CECILY in past but no longer since wt loss with bariatric surgery, arthritis bilateral knees. Last Myocardial Infarction Date:: 2000 or 2001 in [place] History of Any Multi-Drug Resistant Organisms: MRSA Year Discovered:: 09/05/16 MDRO Source:: LEG Past Surgical History: Adenoidectomy, Appendectomy, Bariatric Surgery, Ear Surgery, Tonsillectomy Additional Past Surgical History / Comment(s): shayna en y, ganglion cyst removal x3 Past Anesthesia/Blood Transfusion Reactions: No Reported Reaction Past Psychological History: Depression, Schizoaffective Disorder Additional Psychological History / Comment(s): He is independent. He states his medications for his schizoaffective disorder work very well for him. Smoking Status: Never smoker Past Alcohol Use History: Daily, Heavy Past Drug Use History: None Reported - Past Family History Father Family Medical History: Dementia Additional Family Medical History / Comment(s): Father had narcolepsy. He at the age of 84yrs. Mother Family Medical History: Hypertension Additional Family Medical History / Comment(s): Mother is living. She had acoustic neuroma. Surgical - Exam Vital Signs Temp Pulse Resp BP 98.5 F 73 13 130/84 03/23/22 17:51 03/23/22 17:51 03/23/22 17:51 03/23/22 17:51 Bariatric Checklist Checklist: Plan: Checklist: EGD: 1. Hiatal hernia: 2. H. Pylori: HgbA1c: Vitamin D: Smoking: Never smoker Primary care physician referral: None Psychiatry clearance: Cardiology clearance: Sleep study: Diet journal: VTE risk score: VTE risk level: Rehab needs at discharge:
== END ==
LOC: BARWHC3 16:21
PROVIDERS: ATTEND Surgery Plastic and Reconstructive Surgery
DX: E66.01 Morbid (severe) obesity due to excess calories (principal); Z68.44 Body mass index [BMI] 60.0-69.9, adult; I10 Essential (primary) hypertension; Z88.5 Allergy status to narcotic agent
CPT/HCPCS: 99211

== ENCOUNTER 2023-03-15 19:12 | Emergency (ER) | payer MEDICARE, OTHER ==
[2023-03-15 19:33] VITALS: TEMP 97.8
--- NOTE | 2023-03-15 19:36 | ED ---
General Adult HPI - General Source: patient, RN notes reviewed, old records reviewed Mode of arrival: ambulatory Limitations: no limitations <Jose De Jesus Fenton - Last Filed: 03/15/23 19:33> <Ken Ireland - Last Filed: 03/15/23 22:51> - General Chief complaint: Psychiatric Symptoms Stated complaint: suicidal Time Seen by Provider: 03/15/23 19:17 - History of Present Illness Initial comments: 52-year-old male presenting for mental health evaluation. Patient has history of anxiety, depression he has had increased thoughts of suicide including a plan. He denies suicide attempt. He states he had his last alcoholic drink 2 days prior. No physical complaints. (Jose De Jesus Fenton) - Related Data Home Medications Medication Instructions Recorded Confirmed No Known Home Medications 03/15/23 03/15/23 Allergies Allergy/AdvReac Type Severity Reaction Status Date / Time oxycodone [From Percocet] Allergy Rash/Hives, Verified 03/15/23 21:10 Difficulty breathing Review of Systems ROS Other: All systems not noted in ROS Statement are negative. <Jose De Jesus Fenton - Last Filed: 03/15/23 19:33> ROS Other: All systems not noted in ROS Statement are negative. <Ken Ireland - Last Filed: 03/15/23 22:51> ROS Statement: Those systems with pertinent positive or pertinent negative responses have been documented in the HPI. Past Medical History Past Medical History: Diabetes Mellitus, Hypertension, Osteoarthritis (OA), Sleep Apnea/CPAP/BIPAP Additional Past Medical History / Comment(s): Hx HTN and CECILY, resolved with weight loss with bariatric surgery. Hx Diabetes, but "blood sugar has been good for the last 6 months". Last Myocardial Infarction Date:: 2000 or 2001 in [place] History of Any Multi-Drug Resistant Organisms: MRSA Date of last positivie culture/infection: 09/05/16 MDRO Source:: LEG Past Surgical History: Adenoidectomy, Appendectomy, Bariatric Surgery, Ear Surge ry, Tonsillectomy Additional Past Surgical History / Comment(s): Laamr en Y, ganglion cyst removal X3. Past Anesthesia/Blood Transfusion Reactions: No Reported Reaction Past Psychological History: Bipolar, Depression, Schizoaffective Disorder Smoking Status: Never smoker Past Alcohol Use History: Daily, Heavy, Occasional Past Drug Use History: None Reported - Past Family History Father Family Medical History: Cancer, Dementia Additional Family Medical History / Comment(s): Father had narcolepsy. He at the age of 84yrs. Prostate cancer. Mother Family Medical History: Hypertension Additional Family Medical History / Comment(s): Acoustic neuroma. <Jose De Jesus Fenton Idalia - Last Filed: 03/15/23 19:33> General Exam Limitations: no limitations General appearance: alert, anxious Head exam: Present: atraumatic, normocephalic Eye exam: Present: normal appearance, PERRL Neck exam: Present: normal inspection. Absent: tenderness, meningismus Respiratory exam: Present: normal lung sounds bilaterally. Absent: respiratory distress, wheezes Cardiovascular Exam: Present: regular rate, normal rhythm GI/Abdominal exam: Present: soft. Absent: distended, tenderness, guarding Extremities exam: Present: normal inspection Neurological exam: Present: alert, oriented X3 Psychiatric exam: Present: depressed, flat affect, suicidal ideation Skin exam: Present: warm, dry, intact. Absent: cyanosis, diaphoretic <Jose De Jesus Fenton Idalia - Last Filed: 03/15/23 19:33> Course Vital Signs 03/15/23 19:13 Temperature 97.8 F Pulse Rate 96 Respiratory 16 Rate Blood Pressure 161/90 O2 Sat by Pulse 99 Oximetry Medical Decision Making <Jose De Jesus Fenton Idalia - Last Filed: 03/15/23 19:33> <Ken Ireland - Last Filed: 03/15/23 22:51> - Medical Decision Making Was pt. sent in by a medical professional or institution (, PA, RESTORATIVE ART EMBALMER, urgent care, hospital, or group home...) When possible be specific @ -No Did you speak to anyone other than the patient for history (EMS, parent, family, police, friend...)? What history was obtained from this source @ -No Did you review nursing and triage notes (agree or disagree)? Why? @ -I reviewed and agree with nursing and triage notes Were old charts reviewed (outside hosp., previous admission, EMS record, old EKG, old radiological studies, urgent care reports/EKG's, group home records)? Report findings @ -No old charts were reviewed Differential Diagnosis (chest pain, altered mental status, abdominal pain women, abdominal pain men, vaginal bleeding, weakness, fever, dyspnea, syncope, headache, dizziness, GI bleed, back pain, seizure, CVA, palpatations, mental health, musculoskeletal)? @Differential Mental Health Depression, anxiety, bipolar, psychosis, schizophrenia, borderline personality, situational depression, adjustment disorder, behavioral disorder, brain tumor, malingering, substance abuse, encephalopathy, medication reaction, dementia, hypothyroidism, degenerative neurologic disorder, lupus.... This is not meant to be all-inclusive list EKG interpreted by me (3pts min.). @ -As above X-rays interpreted by me (1pt min.). @ -None done CT interpreted by me (1pt min.). @ -None done U/S interpreted by me (1pt. min.). @ -None done What testing was considered but not performed or refused? (CT, X-rays, U/S, labs)? Why? @ -None What meds were considered but not given or refused? Why? @ -None Did you discuss the management of the patient with other professionals (professionals i.e. , PA, RESTORATIVE ART EMBALMER, lab, RT, psych nurse, social worker clinical, telecommunication lines repairer, teacher, contracting officer, residential case manager)? Give summary @ -No Was smoking cessation discussed for >3mins.? @ -No Was critical care preformed (if so, how long)? @ -No Were there social determinants of health that impacted care today? How? (Homelessness, low income, unemployed, alcoholism, drug addiction, transportation, low edu. Level, literacy, decrease access to med. care, longterm, rehab)? @ -No Was there de-escalation of care discussed even if they declined (Discuss DNR or withdrawal of care, Hospice)? DNR status @ -No What co-morbidities impacted this encounter? (DM, HTN, Smoking, COPD, CAD, Cancer, CVA, ARF, Chemo, Hep., AIDS, mental health diagnosis, sleep apnea, morbid obesity)? @Depression Was patient admitted / discharged? Hospital course, mention meds given and route, prescriptions, significant lab abnormalities, going to OR and other pertinent info. Patient medically cleared awaiting EPS evaluation. (Jose De Jesus Fenton) Patient signed out to me pending EPS evaluation. Was medically cleared by the prior physician. EPS evaluated patient and determined that he does meet inpatient criteria. They completed the petition. I completed the clinical certificate. He is awaiting transfer for inpatient mental health. Patient was updated and was in agreement this plan. Diagnosis/symptom? @ -Encounter for psychiatric evaluation, suicidal ideation. Acute, or Chronic, or Acute on Chronic? @ -Acute Uncomplicated (without systemic symptoms) or Complicated (systemic symptoms)? @ -Complicated Side effects of treatment? @ -None Exacerbation, Progression, or Severe Exacerbation] @ -No Poses a threat to life or bodily function? @ -Yes (Ken Ireland) - Lab Data Lab Results 03/15/23 03/15/23 03/15/23 Range/Units 20:59 20:59 20:59 Urine Color Light Yellow Urine Appearance Clear (Clear) Urine pH 6.0 (5.0-8.0) Ur Specific [place] 1.019 (1.001-1.035) Urine Protein Negative (Negative) Urine Glucose (UA) Negative (Negative) Urine Ketones Negative (Negative) Urine Blood Negative (Negative) Urine Nitrite Negative (Negative) Urine Bilirubin Negative (Negative) Urine Urobilinogen <2.0 (<2.0) mg/dL Ur Leukocyte Esterase Negative (Negative) Urine Opiates Screen Not Detected (NotDetected) Ur Oxycodone Screen Not Detected (NotDetected) Urine Methadone Screen Not Detected (NotDetected) Ur Barbiturates Screen Not Detected (NotDetected) U Tricyclic Antidepress Not Detected (NotDetected) Ur Phencyclidine Scrn Not Detected (NotDetected) Ur Amphetamines Screen Not Detected (NotDetected) U Methamphetamines Scrn Not Detected (NotDetected) U Benzodiazepines Scrn Not Detected (NotDetected) Urine Cocaine Screen Not Detected (NotDetected) U Marijuana (THC) Screen Not Detected (NotDetected) SARS-CoV-2 (PCR) Not Detected (Not Detectd) Disposition <Jose De Jesus Fenton - Last Filed: 03/15/23 19:33> <Ken Ireland - Last Filed: 03/15/23 22:51> Clinical Impression: Suicidal ideation, Encounter for psychiatric assessment Disposition: TRANSFER TO PSYCH HOSP/UNIT Condition: Stable Referrals: None,Stated [Primary Care Provider] - 1-2 days
[2023-03-15 21:48] LABS: Appearance,Urine Clear (Clear); Bilirubin,Urine Negative (Negative); Blood,Urine Negative (Negative); Color,Urine Light Yellow; Glucose,Urine (UA) Negative (Negative); Ketones,Urine Negative (Negative); Leukocyte Esterase,Urine Negative (Negative); Nitrite,Urine Negative (Negative); Protein,Urine Negative (Negative); Specific Gravity,Urine 1.019 (1.001-1.035); Urobilinogen,Urine <2.0 mg/dL (<2.0)
[2023-03-15 22:03] LABS: Amphetamine Screen,Urine Not Detected (NotDetected); Barbiturate Screen,Urine Not Detected (NotDetected); Benzodiazepines Screen,Urine Not Detected (NotDetected); Cocaine Screen,Urine Not Detected (NotDetected); Methadone Screen, Urine Not Detected (NotDetected); Opiate Screen,Urine Not Detected (NotDetected); Oxycodone Screen, Urine Not Detected (NotDetected); Phencyclidine Screen,Urine Not Detected (NotDetected); Tricyclic Antidepressant,Urine Not Detected (NotDetected); Urn Cannabinoid Scrn Not Detected (NotDetected)
[2023-03-15 23:07] LABS: Basophils # (A) 0.1 k/uL (0-0.2); Basophils % (A) 1 %; Eosinophils # (A) 0.2 k/uL (0-0.7); Eosinophils % (A) 2 %; HGB 13.9 gm/dL (13.0-17.5); Lymphocytes # (A) 3.1 k/uL (1.0-4.8); Lymphocytes % (A) 32 %; MCH 30.3 pg (25.0-35.0); MCHC 33.9 g/dL (31.0-37.0); MCV 89.4 fL (80.0-100.0); Mean Platelet Volume 7.2; Monocytes # (A) 0.4 k/uL (0-1.0); Monocytes % (A) 5 %; Neutrophils # (A) 5.7 k/uL (1.3-7.7); Neutrophils % (A) 59 %; Platelet Count 259 k/uL (150-450); RBC 4.59 m/uL (4.30-5.90); RDW 13.6 % (11.5-15.5); WBC 9.6 k/uL (3.8-10.6)
[2023-03-16 00:20] LABS: ALT 31 U/L (4-49); AST 29 U/L (17-59); African American GFR (CKD) >90 (>60 ml/min/1.73 sqM); Albumin 3.4 g/dL (3.5-5.0); Alkaline Phosphatase 72 U/L (38-126); Anion Gap 3 mmol/L; Blood Urea Nitrogen 17 mg/dL (9-20); Calcium 8.6 mg/dL (8.4-10.2); Carbon Dioxide 30 mmol/L (22-30); Chloride 106 mmol/L (98-107); Glucose 127 mg/dL (74-99); Non-African American GFR(CKD) 85 (>60 ml/min/1.73 sqM); Sodium 139 mmol/L (137-145); Total Bilirubin 0.5 mg/dL (0.2-1.3); Total Protein 5.6 g/dL (6.3-8.2)
[2023-03-16 09:37] VITALS: RESP 18
[2023-03-16 10:28] VITALS: BP 118/74; PULSE 68
== END 2023-03-16 11:42 ==
LOC: EC 19:12
DX: R45.851 Suicidal ideations (principal); Z04.6 Encounter for general psychiatric examination, requested by authority; E11.9 Type 2 diabetes mellitus without complications; I10 Essential (primary) hypertension; I25.2 Old myocardial infarction; G47.30 Sleep apnea, unspecified; Z20.822 Contact with and (suspected) exposure to COVID-19; Z86.59 Personal history of other mental and behavioral disorders; Z88.5 Allergy status to narcotic agent
CPT/HCPCS: 36415; 80053; 80306; 81003; 82075; 85025; 87635; 99285